=== PATIENT | male | born 1950 | race Two or more races ===

== ENCOUNTER 2024-08-13 12:15 | Inpatient (IN) | payer OTHER ==
[~2024-08-13] VITALS: Wt 80.7 kg
[2024-08-13] MEDS ORDERED: AVAPRO300 MG PO (13:25)
[2024-08-13] MEDS ORDERED: TOPROL XL50 M1 PO (13:26)
[2024-08-13] MEDS ORDERED: ELIQUIS5 MG PO (13:26)
[2024-08-19] MEDS ORDERED: METRONIDAZOLE/SODIUM CHLORIDE 500 MG/100 ML PIGGYBACK IV ONE (09:58)
[2024-08-19] MEDS ORDERED: CEFTRIAXONE SODIUM 2,000 MG VIAL ONE (09:58)
[2024-08-19] MEDS ORDERED: LIDOCAINE HCL 1%/EPINEPHRINE 20ML VIAL IJ ONE (10:00)
[2024-08-19] MEDS ORDERED: BUPIVACAINE HCL/MPF 0.5% 30ML VIAL ONE (10:00)
[2024-08-19] MEDS ORDERED: OxyCODONE HCL 5 MG TABLET (ROXICODONE) PO PRN (12:00)
[2024-08-19] MEDS ORDERED: RINGERS SOLUTION,LACTATED 1,000 ML IV SCH (12:00)
[2024-08-19] MEDS ORDERED: PIPERACILLIN/TAZOBACTAM SODIUM 3.375 GM in DEXTROSE 5 % IN WATER 100 ML IV SCH (12:00)
[2024-08-19] MEDS ORDERED: MORPHINE SULFATE 4 MG/ML CARTRIDGE IV PRN (12:00)
[2024-08-19] MEDS ORDERED: ONDANSETRON HCL 2 MG/ML VIAL IV PRN (12:00)
[2024-08-19] MEDS ORDERED: DEXTROSE 50 % IN WATER 0.5 G/ML DISP.SYRIN IV PRN (12:00)
[2024-08-19] MEDS ORDERED: SUGAMMADEX SODIUM 200 MG/2 ML VIAL IV ONE (12:07)
[2024-08-19] MEDS ORDERED: HYOSCYAMINE SULFATE 0.125 MG TAB.SUBL SL SCH (13:00)
[2024-08-19] MEDS ORDERED: ENALAPRILAT DIHYDRATE 1.25 MG/ML VIAL IV PRN (13:15)
[2024-08-19] MEDS ORDERED: MORPHINE SULFATE 4 MG/ML VIAL IV ONE (13:25)
[2024-08-19 13:48] LABS: HEMATOCRIT 45.3 % (39.0-48.0); HEMOGLOBIN 14.7 g/dL (13-16.00); MEAN CELL VOLUME 90.3 fL (80.0-100.00); MEAN CORPUSCULAR HEMOGLOBIN 29.2 pg (27.00-32.0); MEAN CORPUSCULAR HGB CONC 32.3 g/dl (32.0-36.0); PLATELET COUNT 152 K/uL (150-450); RED BLOOD COUNT 5.02 M/uL (4.00-6.00); RED CELL DISTRIBUTION WIDTH 14.2 % (11.5-14.5)
[2024-08-19] MEDS ORDERED: ACETAMINOPHEN 500 MG GEL..CAP PO SCH (14:00)
[2024-08-19 14:25] LABS: CALCIUM 8.6 mg/dL (8.5-10.1); CREATININE SERUM 1.09 mg/dL (0.70-1.30); GFR 65.95; PHOSPHOROUS 3.5 mg/dL (2.5-4.9)
[2024-08-19] MEDS ORDERED: POLYETHYLENE GLYCOL 3350 17 GM BLIST.PACK PO SCH (17:00)
[2024-08-19] MEDS ORDERED: GABAPENTIN 300 MG CAPSULE PO SCH (17:00)
[2024-08-19] MEDS ORDERED: GABAPENTIN 300 MG CAPSULE PO ONE (17:55)
[2024-08-19] MEDS ORDERED: HYOSCYAMINE SULFATE 0.125 MG TAB.SUBL ONE (17:55)
[2024-08-19] MEDS ORDERED: PIPERACILLIN/TAZOBACTAM SODIUM 3.375 GM VIAL IV ONE (17:58)
[2024-08-19 20:30] VITALS: BP 152/84; O2SAT 100
[2024-08-19] MEDS ORDERED: FAMOTIDINE/PF 20 MG/2 ML VIAL IV PUSH SCH (21:00)
[2024-08-19] MEDS ORDERED: METOPROLOL SUCCINATE 50 MG TAB.SR.24H PO SCH (21:00)
[2024-08-20] VITALS: BP 134/81; O2SAT 95
[2024-08-20 07:49] LABS: HEMATOCRIT 44.7 % (39.0-48.0); MEAN CELL VOLUME 89.3 fL (80.0-100.00); MEAN CORPUSCULAR HEMOGLOBIN 29.9 pg (27.00-32.0); MEAN CORPUSCULAR HGB CONC 33.5 g/dl (32.0-36.0); PLATELET COUNT 145 K/uL (150-450); RED BLOOD COUNT 5.01 M/uL (4.00-6.00); RED CELL DISTRIBUTION WIDTH 14.2 % (11.5-14.5)
[2024-08-20 08:59] LABS: ALBUMIN 2.8 gm/dL (3.4-5.0); CALCIUM 8.6 mg/dL (8.5-10.1); CREATININE SERUM 1.33 mg/dL (0.70-1.30); GFR 52.42; PHOSPHOROUS 3.6 mg/dL (2.5-4.9); POTASSIUM 4.36 mEq/L (3.5-5.1)
[2024-08-20] MEDS ORDERED: IRBESARTAN 300 MG TABLET PO SCH (09:00)
[2024-08-20 10:30] VITALS: BP 145/74; O2SAT 98
[2024-08-20] MEDS ORDERED: ENOXAPARIN SODIUM 40 MG/0.4 ML SYRINGE SUBCUTANEO SCH (17:00)
[2024-08-20 17:10] VITALS: BP 121/78; O2SAT 98
[2024-08-20 17:15] VITALS: BP 121/78; O2SAT 98
[2024-08-21 01:25] VITALS: BP 152/89; O2SAT 95
[2024-08-21] MEDS ORDERED: ENOXAPARIN SODIUM 40 MG/0.4 ML SYRINGE SUBCUTANEO SCH (09:00)
[2024-08-21 10:26] VITALS: BP 149/83; O2SAT 98
[2024-08-21 14:20] LABS: HEMATOCRIT 42.8 % (39.0-48.0); HEMOGLOBIN 14.5 g/dL (13-16.00); MEAN CELL VOLUME 88.5 fL (80.0-100.00); MEAN CORPUSCULAR HEMOGLOBIN 29.9 pg (27.00-32.0); MEAN CORPUSCULAR HGB CONC 33.8 g/dl (32.0-36.0); RED BLOOD COUNT 4.83 M/uL (4.00-6.00); RED CELL DISTRIBUTION WIDTH 14.6 % (11.5-14.5)
[2024-08-21 14:36] LABS: PLATELET COUNT 137 K/uL (150-450)
[2024-08-21 14:52] LABS: CALCIUM 8.7 mg/dL (8.5-10.1); CREATININE SERUM 1.31 mg/dL (0.70-1.30); GFR 53.34; MAGNESIUM 2.1 mg/dL (1.8-2.4); PHOSPHOROUS 2.4 mg/dL (2.5-4.9); POTASSIUM 4.32 mEq/L (3.5-5.1)
[2024-08-21 16:00] VITALS: BP 146/83; O2SAT 96
[2024-08-22] VITALS: BP 133/87; O2SAT 95
[2024-08-22 08:00] VITALS: BP 137/88; O2SAT 95
[2024-08-22] MEDS ORDERED: POTASSIUM PHOS,M-BASIC-D-BASIC 3 MM/ML VIAL IV ONE (09:00)
[2024-08-22] MEDS ORDERED: INTESTINEX680 M1 PO (17:17)
[2024-08-22] MEDS ORDERED: HYOSCYAMINE0.125 M1 SL (17:17)
[2024-08-22 17:32] VITALS: BP 133/81; O2SAT 95
== END 2024-08-22 20:24 | disposition home or self-care (01) | DRG 331 ==
LOC: O/R 08-19 05:02 → SURH 08-19 12:15
PROVIDERS: Internal Medicine Geriatric Medicine; ADMIT Surgery; ATTEND Surgery
PROC: 07BB4ZZ Excision of Mesenteric Lymphatic, Percutaneous Endoscopic Approach (ICD-10-PCS; 2024-08-19)
PROC: 0DBU4ZZ Excision of Omentum, Percutaneous Endoscopic Approach (ICD-10-PCS; 2024-08-19)
PROC: 0DTF4ZZ Resection of Right Large Intestine, Percutaneous Endoscopic Approach (ICD-10-PCS; principal; 2024-08-19 17:15)
DX: C18.2 Malignant neoplasm of ascending colon (principal); R59.0 Localized enlarged lymph nodes; I11.9 Hypertensive heart disease without heart failure